=== PATIENT | female | born 1990 | race Caucasian/White ===

== ENCOUNTER 2018-10-30 16:46 | Inpatient (IN) | payer MEDICAID ==
[~2018-10-30] VITALS: Ht 162.6 cm; Wt 69.0 kg
[2018-10-30 17:23] LABS: BASOPHILS % (AUTO) 0.9 % (0.0-2.0); EOSINOPHILS % (AUTO) 0.9 % (1.0-6.0); HEMATOCRIT 38.5 % (36-46); HEMOGLOBIN 13.2 g/dL (12.0-16.0); LYMPHOCYTES % (AUTO) 25.3 % (22.0-44.0); MEAN CORPUSCULAR HEMOGLOBIN 28.4 pg (26.0-34.0); MEAN CORPUSCULAR HGB CONC 34.2 G/dL (31.0-37.0); MEAN CORPUSCULAR VOLUME 83 fL (80-100); MONOCYTES # (AUTO) 0.8 K/uL (0.1-1.0); NEUTROPHILS # (AUTO) 4.9 K/uL (1.8-7.7); NEUTROPHILS % (AUTO) 62.9 % (40.0-70.0); PLATELET COUNT (AUTO) 369 K/uL (150-450); RED BLOOD CELL COUNT(AUTO) 4.64 MIL/uL (4.00-5.20); RED CELL DISTRIBUTION WIDTH 14.8 % (11.5-14.5)
[2018-10-30 17:37] LABS: ANION GAP 12 mmol/L (8-16); CALCIUM, TOTAL 8.9 mg/dL (8.8-10.5); CARBON DIOXIDE 23 mmol/L (22-29); CHLORIDE 105 mmol/L (98-107); GLOMERULAR FILTR. RATE CALC > 60 mL/min (>60); GLUCOSE,RANDOM 86 mg/dL (70-110); POTASSIUM 3.4 mmol/L (3.5-5.1); SODIUM SERUM 140 mmol/L (136-145); UREA NITROGEN, BLOOD 14 mg/dL (7-18)
[2018-10-30 17:51] LABS: ALANINE AMINOTRANSFERASE 14 U/L (12-78); ALBUMIN 4.2 g/dL (3.4-5.0); ALKALINE PHOSPHATASE 61 U/L (46-116); ASPARTATE AMINOTRANSFERASE 17 U/L (15-37); BILIRUBIN,TOTAL 0.6 mg/dL (0.1-1.0); TOTAL PROTEIN, SERUM 7.5 g/dL (6.4-8.2)
[2018-10-30] MEDS ORDERED: OLANZapine 5 MG TABLET PO ONE (18:15)
[2018-10-30] MEDS ORDERED: POTASSIUM CHLORIDE 20 MEQ ER TABLET PO ONE (20:00)
[2018-10-30 21:30] VITALS: BP 121/81
[2018-10-30] MEDS ORDERED: ZOLPIDEM TARTRATE 10 MG TABLET PO PRN (21:45)
[2018-10-30] MEDS ORDERED: HALOPERIDOL 5 MG TABLET PO PRN (21:45)
[2018-10-30] MEDS ORDERED: PERMETHRIN 1% 60 ML LOTION TP ONE (22:00)
[2018-10-30] MEDS ORDERED: ONDANSETRON HCL 4 MG TABLET PO PRN (22:15)
[2018-10-30] MEDS ORDERED: CloNIDine HCL 0.1 MG TABLET PO PRN (22:15)
[2018-10-30] MEDS ORDERED: MAG HYDROX/AL HYDROX/SIMETH ES 30 ML SUSPENSION UDCUP PO PRN (22:15)
[2018-10-30] MEDS ORDERED: MAGNESIUM HYDROXIDE SUSPENSION 30 ML UDCUP PO PRN (22:15)
[2018-10-30] MEDS ORDERED: ALBUTEROL SULFATE HFA 90 MCG/PUFF 8 GM INHALER IH PRN (22:15)
[2018-10-30] MEDS ORDERED: GuaiFENesin/D-METHORPHAN [SUGAR-FREE] 200-20MG/10 ML SYRUP UDCUP PO PRN (22:15)
[2018-10-30] MEDS ORDERED: DOCUSATE SODIUM 100 MG CAPSULE PO PRN (22:15)
[2018-10-30] MEDS ORDERED: LOPERAMIDE HCL 2 MG CAPSULE PO PRN (22:15)
[2018-10-30] MEDS ORDERED: PETROLATUM,WHITE 28 GM JELLY TP PRN (22:15)
[2018-10-30] MEDS ORDERED: IBUPROFEN 400 MG TABLET PO PRN (22:15)
[2018-10-30] MEDS ORDERED: ACETAMINOPHEN 325 MG TABLET PO PRN (22:15)
[2018-10-30] MEDS: LORazepam 2 MG TABLET PO PRN (22:32)
[2018-10-31] MEDS ORDERED: LORazepam 2 MG TABLET PO SCH
[2018-10-31 08:11] LABS: AMPHET/METH SCREEN,URINE NEGATIVE (NEGATIVE); BARBITURATE SCREEN, URINE NEGATIVE (NEGATIVE); BENZODIAZEPINES SCREEN,URINE NEGATIVE (NEGATIVE); CANNABINOID SCREEN,URINE NEGATIVE (NEGATIVE); COCAINE SCREEN,URINE NEGATIVE (NEGATIVE); METHADONE SCREEN, URINE NEGATIVE (NEGATIVE); OPIATE SCREEN,URINE NEGATIVE (NEGATIVE); PHENCYCLIDINE SCREEN,URINE NEGATIVE (NEGATIVE)
[2018-10-31 16:10] VITALS: BP 107/63
[2018-10-31 16:39] VITALS: BP 107/63
[2018-10-31] MEDS: OLANZapine 10 MG TABLET PO SCH (20:51)
[2018-11-01 06:23] VITALS: BP 110/62
[2018-11-01 10:00] VITALS: BP 108/62
[2018-11-01 16:07] VITALS: BP 110/69
[2018-11-01] MEDS: OLANZapine 10 MG TABLET PO SCH (20:23)
[2018-11-02 04:11] VITALS: BP 128/72
[2018-11-02 16:06] VITALS: BP 134/79
[2018-11-02] MEDS: OLANZapine 10 MG TABLET PO SCH (20:04)
[2018-11-03 08:26] VITALS: BP 116/73
[2018-11-03 16:09] VITALS: BP 123/70
[2018-11-03] MEDS: OLANZapine 10 MG TABLET PO SCH (20:40)
[2018-11-04 02:04] VITALS: BP 113/71
[2018-11-04] MEDS ORDERED: PERMETHRIN 1% 60 ML LOTION TP ONE (09:00)
[2018-11-04 13:35] VITALS: BP 119/65
[2018-11-04 16:54] VITALS: BP 121/70
[2018-11-04] MEDS: LORazepam 2 MG TABLET PO PRN (21:00)
[2018-11-04] MEDS: OLANZapine 10 MG TABLET PO SCH (21:32)
[2018-11-05 00:57] VITALS: BP 112/74
[2018-11-05 08:23] VITALS: BP 90/65
[2018-11-05 16:06] VITALS: BP 120/77
[2018-11-05] MEDS: OLANZapine 10 MG TABLET PO SCH (20:26)
[2018-11-06 01:52] VITALS: BP 115/76
[2018-11-06 16:12] VITALS: BP 128/79
[2018-11-06] MEDS: OLANZapine 10 MG TABLET PO SCH (20:16)
[2018-11-07 06:15] VITALS: BP 116/82
[2018-11-07 08:08] VITALS: BP 110/69
[2018-11-07 15:38] VITALS: BP 122/91
[2018-11-07] MEDS ORDERED: OLANZapine 7.5 MG TABLET PO SCH (21:00)
[2018-11-08 03:15] VITALS: BP 118/82
[2018-11-08 08:12] VITALS: BP 124/78
[2018-11-08] MEDS ORDERED: OLAN7.5T2 PO (09:05)
== END 2018-11-08 13:00 | disposition home or self-care (01) | DRG 753 ==
LOC: EMS 16:47 → B3A 19:30
DX: F31.2 Bipolar disorder, current episode manic severe with psychotic features (principal); B85.0 Pediculosis due to Pediculus humanus capitis; E87.6 Hypokalemia; Z59.0 Homelessness; Z78.9 Other specified health status; Z91.5 Personal history of self-harm; F41.9 Anxiety disorder, unspecified; R10.13 Epigastric pain
CPT/HCPCS: 80307; 84132; G0480